=== PATIENT | female | born 1935 | race Caucasian/White ===

== ENCOUNTER 2016-04-16 09:47 | Emergency (ER) | payer OTHER, BC ==
[2016-04-16 09:57] VITALS: BP 161/87; PULSE 92; RESP 16; TEMP 97.7; O2SAT 95
--- NOTE | 2016-04-16 11:29 | EDPHY ---
H & P Time Seen by Provider: 04/16/16 11:14 HPI/ROS: CHIEF COMPLAINT: Left knee calf pain x1 week HISTORY OF PRESENT ILLNESS: 80-year-old female complaining of left popliteal pain which started 1 week ago after she stepped up over to steps and felt immediate pain. She has had intermittent pain ever since however notes new calf pain. She is concerned about DVT. Denies direct trauma or fall . She has intermittent instability. Denies discoloration. Denies proximal distal pain or injury. PHYSICAL EXAM (Prior to examination, patient consented to physical exam, hands were washed and my usual and customary physical exam procedures followed) 1) GENERAL: Well-developed, well-nourished, alert and oriented. Appears to be in no acute distress. 2) HEAD: Normocephalic 3) HEENT: Pupils equal, round, reactive to light bilaterally. 4) LUNGS: Breathing comfortably. 5) MUSCULOSKELETAL: Exam of the Left knee knee shows no soft tissue swelling. No focal areas of tenderness with palpation. . Compartments are soft. Negative Homans no palpable cord 6) SKIN: normal color 7) VASCULAR: DP,PT pulses and cap refill present and brisk distally DIFFERENTIAL DIAGNOSIS: in no particular order including but not limited to fracture, sprain, compartment syndrome, septic arthritis, DVT Xray of the left knee interpreted by myself: no definitive acute osseous abnormality Ultrasound left lower extremity interpreted by radiologist: No DVT. Images reviewed by myself. MEDICAL DECISION MAKING Serial evaluations performed on patient. I discussed the limitations of x-ray in diagnosis of knee pain and injury. At this time I do not think that emergent MRI is currently indicated. However, I have recommended follow-up with Orthopedic surgery and provided this referral information. Informed the patient that outpatient MRI may be indicated. Doubt septic arthritis. Doubt compartment syndrome. Doubt DVT. Recommend orthopedic follow-up. Smoking Status: Never smoked Constitutional: Initial Vital Signs Temperature (C) 36.5 C 04/16/16 09:54 Heart Rate 92 04/16/16 09:54 Respiratory Rate 16 04/16/16 09:54 Blood Pressure 161/87 H 04/16/16 09:54 O2 Sat (%) 95 04/16/16 09:54 O2 Delivery Mode Room Air Allergies/Adverse Reactions: oxycodone [Oxycodone] Allergy (Verified 04/16/16 09:52) Home Medications: Medication Instructions Recorded Lisinopril 01/07/13 Nature-Thyroid 04/16/16 Vitamins And Supplements 04/16/16 MDM/Departure - [facility] ED Course/Re-evaluation: Re-evaluation with serial exams most recently at 12:25 p.m.. Discussed her negative imaging results. Discussed limitations limitations of plain x-rays. Doubt DVT. Doubt compartment syndrome. Doubt fracture. Doubt cellulitis. Doubt septic arthritis. Recommend follow up with Orthopedics. We discussed usage of knee immobilizer, crutches; however, I think this would put the patient at greater risk of falling . - Depart Disposition: Home, Routine, Self-Care Clinical Impression: Left knee pain Qualifiers: Chronicity: acute Qualifier Code: (M25.562) Pain in left knee Condition: Good Instructions: Knee Pain (ED) Additional Instructions: Return to the ER immediately if you experience discoloration, have worsening pain, numbness, tingling, or any other symptoms that concern you. If you received x-rays in the emergency department today, be advised, that ligamentous , tendon, muscular, and other non-bony injury cannot be fully ruled out. Try to keep your affected extremity elevated above the level of your chest, and keep cold packs on the affected area, for the next 48 hours. Referrals: Chinmay Saucedo MD [Medical Doctor] - 5-7 days, call for appt.
--- NOTE | 2016-04-16 12:14 | US ---
Left Lower Extremity Ultrasound and Venous Duplex Doppler Study History: Fall last week with pain and swelling. Comparison: None available. Technique: High frequency transducer was used for imaging and Doppler study of the veins of the lowe r extremity. Pulsed Doppler and color Doppler were utilized, along with various maneuvers to assess flow in the veins. Findings: The deep veins of the lower extremity are normally compressible between the groin and the upper calf and have normal Doppler waveforms within them. No venous thrombosis is identified. Impression: No evidence of deep vein thrombosis. Findings discussed with Yaz Meade today at 1212 hours.
--- NOTE | 2016-04-16 13:08 | DX ---
Left Knee, Five Views. HISTORY: Knee pain continued after fall off a step one week ago. FINDINGS: There is normal mineralization and alignment. No evidence for acute fracture or dislocation . There is joint narrowing and periarticular spurring in the medial compartment and mild periarticula r spurring in the lateral compartment. Severe joint narrowing and subarticular sclerosis and periarti cular spurring are seen in the patellofemoral compartment, more severe laterally. Minimal suprapatell ar joint effusion. IMPRESSION: Tricompartment degenerative change left knee most predominant in the patellofemoral jose rtment. No evidence for acute fracture.
== END 2016-04-16 12:43 | disposition home or self-care (01) ==
DX: M25.562 Pain in left knee (principal)

== ENCOUNTER 2017-08-05 09:28 | Emergency (ER) | payer OTHER, BC ==
[2017-08-05 09:37] VITALS: BP 139/79
[2017-08-05] MEDS ORDERED: TDAP ADULT 0.5 ML INJ (BOOSTRIX) IM ONE (10:12)
--- NOTE | 2017-08-05 10:12 | EDPHY ---
H & P Time Seen by Provider: 08/05/17 09:49 HPI/ROS: CHIEF COMPLAINT: Abrasion right leg HISTORY OF PRESENT ILLNESS: 81-year-old female presents emergency department with concerns about infection associated with an abrasion to her right lower leg. Patient states 10 days ago she was carrying a tray which dropped and hit her in the right lower leg. Since that time she has been using peroxide as well as Neosporin and applying a poultice to the area. Patient is unsure of her last tetanus shot. She has no associated pain with this. ROS: Denies pain, numbness or tingling in her lower extremities, retained foreign body. Past Medical/Surgical History: Hypothyroidism, hypertension, type 2 diabetic diet controlled, macular degeneration, tonsillectomy Social History: and lives in [place] Smoking Status: Never smoked Physical Exam: On examination the patient has a very superficial abrasion to the anterior aspect of the right lower leg. There is some redness associated with the wound margins however no other surrounding redness or evidence of cellulitis. Nontender to palpate. No palpable bony tenderness. No evidence of retained foreign body. Normal sensation to light touch. Constitutional: Initial Vital Signs Temperature (C) 36.7 C 08/05/17 09:34 Heart Rate 94 08/05/17 09:34 Respiratory Rate 16 08/05/17 09:34 Blood Pressure 139/79 H 08/05/17 09:34 O2 Sat (%) 94 08/05/17 09:34 O2 Delivery Mode Room Air Allergies/Adverse Reactions: oxycodone [Oxycodone] Allergy (Verified 04/16/16 09:52) Home Medications: Medication Instructions Recorded Lisinopril 01/07/13 Nature-Thyroid 04/16/16 Vitamins And Supplements 04/16/16 Aspirin 08/05/17 MDM/Departure - [facility] ED Course/Re-evaluation: 31-year-old male presents with an abrasion to her right lower leg. Her tetanus shot was updated. The patient was reassured. I do not see any signs of infection. I do not think antibiotics are indicated. I think the wound is showing signs of could healing. I did discourage her from continuing to apply Neosporin or her other topical poultice. She was given wound care precautions. - Depart Disposition: Home, Routine, Self-Care Clinical Impression: Abrasion of anterior right lower leg Qualifiers: Encounter type: initial encounter Qualified Code(s): S80.811A - Abrasion, right lower leg, initial encounter Condition: Good Instructions: Abrasion (ED), Acute Wounds (ED) Additional Instructions: Keep wound open to the air as discussed. You have no signs of infection today on examination. Return to the emergency department if you develop pain in her right lower leg, surrounding redness, red streaking up your leg, fever, or if you feel worse in any way. Your given a tetanus shot today in the emergency department. Please document this for your records and inform your primary care provider. Referrals: KATHY ESQUIVEL [Primary Care Provider] - As per Instructions
== END 2017-08-05 10:29 | disposition home or self-care (01) ==
DX: S80.811A Abrasion, right lower leg, initial encounter (principal); I10 Essential (primary) hypertension; E11.9 Type 2 diabetes mellitus without complications; Z23 Encounter for immunization; Z79.82 Long term (current) use of aspirin; W20.8XXA Other cause of strike by thrown, projected or falling object, initial encounter; Y99.8 Other external cause status; Y93.89 Activity, other specified

== ENCOUNTER 2017-08-11 09:09 | Emergency (ER) | payer OTHER, BC ==
--- NOTE | 2017-08-11 09:42 | EDPHY ---
H & P Time Seen by Provider: 08/11/17 09:19 HPI/ROS: CHIEF COMPLAINT: Trouble swallowing this morning HISTORY OF PRESENT ILLNESS: Patient is had a lot of nasal congestion over the past week. She usually sleeps on her side but last night she slept on her back. This morning she awakened at 7:00 a.m. Feeling like she was choking a little bit on some mucus. She reached the back of her throat pulled out of chunk of mucus and then coughed and had a slight tinge of blood and a speck of blood in what she coughed up. Currently she feels a sore throat like there is something stuck in the back of her throat. She does not actually have coughing currently and does not have difficulty swallowing her own saliva. No other neurologic symptoms, specifically no visual symptoms or difficulty with speech or strength or sensation. She was doing well yesterday and working in the garden and felt pretty well. REVIEW OF SYSTEMS: Eye: no change in vision ENT: HPI Cardiac: No chest pain Pulmonary: Not short of breath Abdomen: No abdominal symptoms Musculoskeletal: No neck pain Skin: no rash Neuro: no headache Constitutional: no fever : no urinary symptoms A comprehensive 10 point review of systems is otherwise negative aside from elements mentioned in the history of present illness. PAST MEDICAL HISTORY: Includes hypothyroid, hypertension, diabetes, macular degeneration Social history: Here with her spouse General Appearance: Alert and conversant, cooperative. Eyes: No scleral icterus. Extraocular motion intact. ENT, Mouth: Normal mucous membranes. Uvula is midline, no trismus, no angioedema. Her palate elevates symmetrically. She has some mucus and phlegm along the right tonsillar pillar which was removed with suction. Respiratory: Normal respiratory effort, breath sounds equal, lungs are clear to auscultation. Cardiovascular: Regular rate and rhythm. Gastrointestinal: Abdomen is soft and non tender. Neurological: Alert, face symmetric, normal motor and sensory in extremities. Fluent speech. Skin: Warm and dry, no rashes. Musculoskeletal: Normal range of motion of the neck, and normal voice. Psychiatric: Not agitated. Emergency Department course/MDM: Likely related to phlegm with nasal congestion and sleeping on her back instead of her usual, on her side. I do not think it is likely that she has esophageal foreign body or angioedema or deep space neck infection. She does not have neurologic problems suggest that she has stroke or demyelinating disease or toxic neurologic problem. She can swallow juice and soda in the emergency department and states she is comfortable going home, which I think is reasonable. Smoking Status: Never smoked Constitutional: Initial Vital Signs Temperature (C) 36.9 C 08/11/17 09:13 Heart Rate 87 08/11/17 09:13 Respiratory Rate 18 08/11/17 09:13 Blood Pressure 157/83 H 08/11/17 09:13 O2 Sat (%) 94 08/11/17 09:13 O2 Delivery Mode Room Air Allergies/Adverse Reactions: oxycodone [Oxycodone] Allergy (Verified 04/16/16 09:52) Home Medications: Medication Instructions Recorded Lisinopril 01/07/13 Nature-Thyroid 04/16/16 Vitamins And Supplements 04/16/16 Aspirin 08/05/17 Departure - Departure Disposition: Home, Routine, Self-Care Clinical Impression: Mucus pooling in larynx Condition: Good Instructions: Dysphagia (ED) Referrals: KATHY ESQUIVEL [Primary Care Provider] - As per Instructions Crow Chin MD [Medical Doctor] - As per Instructions
[2017-08-11 10:10] VITALS: BP 143/80
== END 2017-08-11 10:14 | disposition home or self-care (01) ==
DX: J38.7 Other diseases of larynx (principal); I10 Essential (primary) hypertension; E11.9 Type 2 diabetes mellitus without complications; Z79.82 Long term (current) use of aspirin

== ENCOUNTER → 2017-09-16 | Outpatient (CLI) | payer OTHER, BC | LOC: FIMAGING 10:15 | PROVIDERS: ATTEND Family Medicine | DX: Z13.820 Encounter for screening for osteoporosis (principal); M81.0 Age-related osteoporosis without current pathological fracture; E07.9 Disorder of thyroid, unspecified; Z91.89 Other specified personal risk factors, not elsewhere classified ==

== ENCOUNTER 2017-11-23 10:57 | Emergency (ER) | payer OTHER, BC ==
--- NOTE | 2017-11-23 11:31 | EDPHY ---
H & P Stated Complaint: non traumatic R lateral calf pain and swelling x 4 days Time Seen by Provider: 11/23/17 11:30 HPI/ROS: HPI: This is an 82-year-old female who presents with Chief Complaint: non traumatic R lateral calf pain and swelling x 4 days Location: Right lateral anterior calf Quality: Pain and swelling Duration: 3-4 days Signs and Symptoms: No bleeding, no radiation, no numbness, no weakness, no tingling, no incontinence, no decreased range of motion, + swelling, + pain, no fever, no redness Timing: Acute Severity: Moderate Context: Patient has a history of varicose vein, walked 11,000 steps yesterday and is very active, presents with right lateral anterior calf pain and swelling over the last 3-4 days. Pain worsens with ambulation for long periods of time and touching the area. Denies radiation, weakness, erythema, warmth. No recent long distance travel. No injury. Modifying Factors: None Comment: ROS: see HPI Constitutional: No fever, no chills, no weight loss Eyes: No blurred vision Respiratory: No shortness of breath, no cough Cardiovascular: No chest pain Gastrointestinal: No nausea, no vomiting no diarrhea Genitourinary: No dysuria Extremities: No myalgias Neurologic: No weakness, no numbness Skin: No rashes Hematologic: No bruising, no bleeding MEDICAL/SURGICAL/SOCIAL HISTORY: Medical history: hypothyroid, HTN, MACULAR DEGENERATION Surgical history: Denies Social history: , retired CONSTITUTIONAL: Extremely polite and cooperative elderly white female, appears younger than stated age, awake and alert, no obvious distress HEENT: Atraumatic and normocephalic, PERRL, EOMI. Nares patent; no rhinorrhea; no nasal mucosal edema. Tympanic membranes clear. Oropharynx clear, no exudate and moist pink mucosa. Airway patent. No lymphadenopathy. No meningismus. Cardiovascular: Normal S1/S2, regular rate, regular rhythm, without murmur rub or gallop. PULMONARY/CHEST: Symmetrical and nontender. Clear to auscultation bilaterally. Good air movement. No accessory muscle usage. ABDOMEN: Soft, nondistended, nontender, no rebound, no guarding, no peritoneal signs, no masses or organomegaly. No CVAT. EXTREMITIES: 2/2 pulses, strength 5/5, bilateral lower extremity varicose veins noted, anterior right lateral reproducible tenderness; no calf pain, negative Homans sign, no palpable cords, no deformities, no clubbing, no cyanosis or edema. NEUROLOGICAL: no focal neuro deficits. GCS 15. SKIN: Warm and dry, no erythema. no rash. Good capillary refill. Source: Patient Exam Limitations: No limitations - Personal History Tetanus Vaccine Date: 08/12 - Medical/Surgical History Hx Asthma: No Hx Chronic Respiratory Disease: No Hx Diabetes: No Hx Cardiac Disease: No Hx Renal Disease: No Hx Cirrhosis: No Hx Alcoholism: No Hx HIV/AIDS: No Hx Splenectomy or Spleen Trauma: No Other PMH: hypothyroid, HTN, MACULAR DEGENERATION - Social History Smoking Status: Never smoked Constitutional: Initial Vital Signs Temperature (C) 36.5 C 11/23/17 11:04 Heart Rate 81 11/23/17 11:04 Respiratory Rate 16 11/23/17 11:04 Blood Pressure 134/72 H 11/23/17 11:04 O2 Sat (%) 97 11/23/17 11:04 O2 Delivery Mode Room Air Allergies/Adverse Reactions: oxycodone [Oxycodone] Allergy (Verified 04/16/16 09:52) Home Medications: Medication Instructions Recorded Lisinopril 01/07/13 Nature-Thyroid 04/16/16 Vitamins And Supplements 04/16/16 Aspirin 08/05/17 Medical Decision Making - Diagnostics Imaging Results: Imaging Impressions Extremity Venous Study 11/23/17 11:30 Impression: 1. Right Lemus's cyst. 2. No deep venous thrombosis right leg. Findings and recommendations discussed with Emergency Department physician, Orquidea Schaffer at 12:16 hour, 11/23/2017. Final report concurs with initial preliminary interpretation. ED Course/Re-evaluation: Vital signs reviewed and stable upon arrival. Doubt DVT. Suspect musculoskeletal mendez splints. Right lower extremity ultrasound ordered 1215: called by Radiology, Dr. Pearce, who advised that ultrasound shows no DVT but does show Lemus cyst as measuring 3.5 x 1.6 cm in the medial popliteal fossa. Advised supportive care. No signs of neurovascular compromise/tenting of skin/compartment syndrome/ extremities and joints examined above and below area of concern and are neurovascularly intact/thrombophlebitis/cellulitis. This patient was seen under the supervision of my secondary supervising physician. I evaluated care for this patient independently. Discussed this patient with Dr. Cyr. Differential Diagnosis: Leg swelling including but not limited to hypoalbuminemia, congestive heart failure, cor pulmonale, chronic venous stasis and DVT. 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 Take Tylenol 650 mg every 4 hours and/or Ibuprofen 600 mg every 8 hours with food as needed for pain. Apply ice for 30 minutes at a time; 2-3 times per day for the next 1-2 days. Reduce activity level until symptoms have resolved. If symptoms continue to persist or worsen, follow up with primary care provider Orthopedics for further evaluation. Return to the ER immediately if you experience new or worsening pain, discoloration, numbness, tingling, or any other symptoms that concern you. Referrals: KATHY ESQUIVEL [Primary Care Provider] - As per Instructions Michael Mari MD [Medical Doctor] - As per Instructions
[2017-11-23 13:05] VITALS: BP 136/74
== END 2017-11-23 13:05 | disposition home or self-care (01) ==
DX: S86.891A Other injury of other muscle(s) and tendon(s) at lower leg level, right leg, initial encounter (principal); M71.21 Synovial cyst of popliteal space [Baker], right knee; I10 Essential (primary) hypertension; E03.9 Hypothyroidism, unspecified